=== PATIENT | female | born 1995 | race Caucasian/White ===

== ENCOUNTER → 2017-08-04 | Outpatient (CLI) | payer OTHER ==
--- NOTE | 2017-08-04 14:00 | EKG ---
[place] [address] ELECTROCARDIOGRAM REPORT Name: CHAN ALEXANDER Room: [facility]#: [id number] Admission: 08/04/17 Attend Phys: Physician not on staf Discharge: Date of : [birth year] Report #: [id number] THIS REPORT FOR: //name// [facility] Test Date: 2017-08-04 Test Time: 11:57:12 Pat Name: CHAN ALEXANDER Department: Room: Gender: F [employer]: : 1995 Requested By: Physician staff Order Number: [id number] Reading MD: Bola Vargas Measurements Intervals [place] Rate: 58 P: 95 RI: 232 QRS: 92 QRSD: 88 T: 68 QT: 434 QTc: 427 Interpretive Statements Sinus arrhythmia Prolonged RI interval Borderline right axis deviation No previous ECG available for comparison Electronically Signed On 08-04-2017 14:00:24 CDT by Bola Vargas [email or web address] <ELECTRONICALLY SIGNED> By: Bola Vargas MD, [facility] 08/04/17 1400 1157 1157 Bola Vargas MD, FACC /EPI
== END ==
LOC: M.CRD 11:43
DX: R55 Syncope and collapse (principal)